=== PATIENT | male | born 1935 | race African-American/Black ===

== ENCOUNTER 2019-04-06 20:46 | Emergency (ER) | payer OTHER ==
[~2019-04-06] VITALS: Ht 172.7 cm; Wt 73.0 kg
[2019-04-06] MEDS ORDERED: SODIUM CHLORIDE 0.9% 1,000 ML IV ONE (21:50)
[2019-04-06 22:26] LABS: BG BASE EXCESS -7.6 mmol/L (-2.0-2.0); BG CARBOXYHEMOGLOBIN 0.3 % (0.5-1.5); BG DEOXYHEMOGLOBIN 7.1 % (0.0-5.0); BG FRACTION INSPIRED OXYGEN 21; BG HCO3 ACT 16.6 mmol/L (22.0-26.0); BG METHEMOGLOBIN 0.3 % (0.0-1.5); BG OXYGEN SATURATION 92.9 % (92.0-98.5); BG OXYHEMOGLOBIN 92.3 % (94.0-97.0); BG PCO2 30.2 mmHg (35.0-45.0); BG PH 7.359 (7.350-7.450); BG PO2 69.7 mmHg (75.0-100.0); BG SAMPLE SITE RIGHT RADIAL; BG TOTAL HEMOGLOBIN 12.2 g/dL (12.0-18.0); BG VENT MODE ROOM AIR
[2019-04-06 22:59] LABS: BASOPHILS % 0.5 % (0.0-2.0); EOSINOPHILS % 0.3 % (0.0-5.0); HEMATOCRIT. 35.5 % (42.0-52.0); HEMOGLOBIN. 12.3 g/dL (14.0-18.0); LYMPHOCYTES % 8.4 % (20.0-50.0); MEAN CORPUSCULAR HEMOGLOBIN 32.8 pg (28.0-32.0); MEAN CORPUSCULAR VOLUME 94.9 fL (80.0-94.0); MEAN PLATELET VOLUME 8.5 fl (7.4-10.4); MONOCYTES % 6.5 % (2.0-8.0); NEUTROPHILS % 84.3 % (40.0-76.0); PLATELET 226 x1000/uL (130-400); RED BLOOD CELL COUNT 3.74 mill/uL (4.7-6.1); RED CELL DISTRIBUTION WIDTH 15.7 % (11.6-14.6)
[2019-04-06 23:04] LABS: CHLORIDE 106 mEq/L (98-107)
[2019-04-06 23:08] LABS: ETHANOL BLOOD < 10 mg/dL
[2019-04-06 23:11] LABS: PARTIAL THROMBOPLASTIN TIME 22.4 sec (23.4-31.0); PROTHROMBIN TIME 10.5 sec (9.6-11.0)
[2019-04-07 00:59] VITALS: BP 99/63
== END 2019-04-07 02:52 | disposition short-term general hospital (02) ==
LOC: ER 20:46 → EDBEDREQSVC 22:04 → ER 04-07 02:52 → CANBEDREQ 04-07 03:10
DX: R55 Syncope and collapse (principal); R42 Dizziness and giddiness; I95.9 Hypotension, unspecified; N28.9 Disorder of kidney and ureter, unspecified; I10 Essential (primary) hypertension
CPT/HCPCS: 36415; 36600; 70450; 71045; 80053; 80320; 82375; 82805; 83690; 83735; 83880; 84484; 85025; 85610; 85730; 86850; 86900; 86901; 93005; 96360; 99285; J7030; G0480

== ENCOUNTER 2019-06-11 20:20 | Emergency (ER) | payer OTHER ==
[~2019-06-11] VITALS: Ht 177.8 cm; Wt 100.0 kg
[2019-06-11] MEDS ORDERED: ACETAMINOPHEN 500MG TABLET PO ONE (22:15)
[2019-06-11] MEDS ORDERED: CEFTRIAXONE 1 G PREMIX 50 ML IV ONE (22:45)
[2019-06-11] MEDS ORDERED: AZITHROMYCIN 500 MG in DEXT 5% WATER 250 ML IV SCH (22:45)
[2019-06-11 22:50] LABS: CLARITY URINE CLOUDY (CLEAR); COLOR URINE DARK YELLOW (YELLOW); KETONES URINE TRACE (NEGATIVE); LEUKOCYTE ESTERASE URINE NEGATIVE (NEGATIVE); NITRITE URINE NEGATIVE (NEGATIVE); OCCULT BLOOD URINE 1+ (NEGATIVE); PROTEIN URINE 2+ (NEGATIVE); SPECIFIC GRAVITY URINE 1.031 (1.005-1.030)
[2019-06-11] MEDS ORDERED: SODIUM CHLORIDE 0.9% 1,000 ML IV ONE (22:52)
[2019-06-11 23:08] LABS: HEMATOCRIT. 33.4 % (42.0-52.0); HEMOGLOBIN. 11.3 g/dL (14.0-18.0); MEAN CORPUSCULAR HEMOGLOBIN 32.7 pg (28.0-32.0); MEAN CORPUSCULAR VOLUME 96.8 fL (80.0-94.0); MEAN PLATELET VOLUME 8.7 fl (7.4-10.4); PLATELET 194 x1000/uL (130-400); RED BLOOD CELL COUNT 3.45 mill/uL (4.7-6.1); RED CELL DISTRIBUTION WIDTH 16.8 % (11.6-14.6)
[2019-06-11 23:11] LABS: CHLORIDE 105 mEq/L (98-107)
[2019-06-11 23:28] LABS: PLATELET ESTIMATE NORMAL
[2019-06-12 02:56] VITALS: BP 149/82
== END 2019-06-12 04:24 | disposition short-term general hospital (02) ==
LOC: ER 20:20
DX: A41.9 Sepsis, unspecified organism (principal); J18.9 Pneumonia, unspecified organism
CPT/HCPCS: 36415; 71045; 71250; 80053; 81003; 83605; 83880; 84484; 85025; 87040; 93005; 96365; 96366; 96367; 99291; J0456; J0696; J7060